=== PATIENT | female | born 1940 | race Caucasian/White ===

== ENCOUNTER 2019-09-05 15:22 | Emergency (ER) | payer MEDICARE, OTHER ==
[~2019-09-05] VITALS: Ht 157.5 cm; Wt 97.5 kg
--- NOTE | 2019-09-05 16:05 | RAD ---
Examination: CT head and cervical spine without contrast HISTORY: History of fall, neck pain COMPARISON: None Available. Exposure: One or more of the following individualized dose reduction techniques were utilized for this examination: 1. Automated exposure control 2. Adjustment of the mA and/or kV according to patient size 3. Use of iterative reconstruction technique TECHNIQUE: 5 mm contiguous axial images were obtained from the skull base to the vertex in both bone and soft tissue algorithm. FINDINGS: No abnormal attenuation within the brain parenchyma. No evidence of acute intracranial hemorrhage. No extra-axial fluid collections. No mass effect or midline shift. Ventricular size is appropriate. Basal cisterns are patent. There is lucency identified in the right parietotemporal skull bone probably prior surgical change ..Ortiz-white differentiation is preserved.Globes and orbits are within normal limits. Paranasal sinuses are clear. Changes of right mastoidectomy. IMPRESSION: 1. No acute intracranial findings. 2. Lucency identified in the right parietotemporal skull bone likely prior surgical change. Correlate clinically. CT CERVICAL SPINE COMPARISON: None Available. Technique: 2.5 mm contiguous axial images were obtained from the skull base through the cervicothoracic junction in both bone and soft tissue algorithm. Additional sagittal and coronal reconstructions were also performed. FINDINGS: Vertebral body alignment is maintained. There is straightening of normal cervical lordosis. The lateral masses of C1 are aligned upon C2. No fractures identified. The bony canal is patent throughout. Moderate intervertebral disc height loss identified in the cervical spine most at C5-C6 vertebral level. The bilateral facets are well aligned. The paraspinous soft tissues are unremarkable. Visualized intracranial contents are unremarkable. Lung apices are clear. IMPRESSION: 1. No acute fracture of the cervical spine. Correlate clinically. 2. Moderate degenerative changes cervical spine. Electronically signed by: Richi Mckinnon MD (09/05/2019 4:03 PM) [id number]
--- NOTE | 2019-09-05 16:12 | PHYS DOC ---
Past History Past Medical History: Hypertension Past Surgical History: Cholecystectomy, Hysterectomy Alcohol Use: None Drug Use: None Adult General Chief Complaint Chief Complaint: MECHANICAL FALL HPI HPI Patient is a 79-year-old female who was brought here by EMS for evaluation of head injury. Patient WAS walking outside the [employer] parking lot, she was walking with her walker, walker get into a pothole and it collapsed, patient fell backward and hit her head on the ground. There was no loss of consciousness. Patient denies any extremity pain, no back pain, no pelvic pain. Patient is not on blood thinner. All other ROS is negative unless otherwise noted in HPI Review of Systems Review of Systems See above Allergies Allergies Allergies Coded Allergies Type Severity Reaction Last Updated Verified No Known Drug Allergies 09/05/19 No Physical Exam Physical Exam See above Constitutional: Well developed, well nourished, no acute distress, non-toxic appearance. [] HENT: Normocephalic, There is moderate size hematoma on right occipital area, bilateral external ears normal, oropharynx moist, no oral exudates, nose normal. [] Eyes: PERRLA, EOMI, conjunctiva normal, no discharge. [] Neck: Normal range of motion, no tenderness, supple, no stridor. [] Cardiovascular:Heart rate regular rhythm, no murmur [] Lungs & Thorax: Bilateral breath sounds clear to auscultation [] Abdomen: Bowel sounds normal, soft, no tenderness, no masses, no pulsatile masses. [] Skin: Warm, dry, no erythema, no rash. [] Back: No tenderness, no CVA tenderness. [] Extremities: No tenderness, no cyanosis, no clubbing, ROM intact, no edema. [] Neurologic: Alert and oriented X 3, normal motor function, normal sensory function, no focal deficits noted. [] Psychologic: Affect normal, judgement normal, mood normal. [] Current Patient Data Vital Signs Vital Signs Date Time Temp Pulse Resp B/P (MAP) Pulse Ox O2 Delivery O2 Flow Rate FiO2 09/05/19 15:52 97.6 88 18 Room Air 94.0 EKG EKG [] Radiology/Procedures Radiology/Procedures [][address] [address] IMAGING REPORT Signed PATIENT: BARAK DAVILA LACCOUNT: [id number] : 1940 LOCATION: ER AGE: 79 SEX: F EXAM STATUS: REG ER ORD. PHYSICIAN: LAUREN CASILLAS DO REASON: FELL, HEAD AND NECK PAIN PROCEDURE: CT HEAD AND CERVICAL SPINE WO Examination: CT head and cervical spine without contrast HISTORY: History of fall, neck pain COMPARISON: None Available. Exposure: One or more of the following individualized dose reduction techniques were utilized for this examination: 1. Automated exposure control 2. Adjustment of the mA and/or kV according to patient size 3. Use of iterative reconstruction technique TECHNIQUE: 5 mm contiguous axial images were obtained from the skull base to the vertex in both bone and soft tissue algorithm. FINDINGS: No abnormal attenuation within the brain parenchyma. No evidence of acute intracranial hemorrhage. No extra-axial fluid collections. No mass effect or midline shift. Ventricular size is appropriate. Basal cisterns are patent. There is lucency identified in the right parietotemporal skull bone probably prior surgical change ..Ortiz-white differentiation is preserved.Globes and orbits are within normal limits. Paranasal sinuses are clear. Changes of right mastoidectomy. IMPRESSION: 1. No acute intracranial findings. 2. Lucency identified in the right parietotemporal skull bone likely prior surgical change. Correlate clinically. CT CERVICAL SPINE COMPARISON: None Available. Technique: 2.5 mm contiguous axial images were obtained from the skull base through the cervicothoracic junction in both bone and soft tissue algorithm. Additional sagittal and coronal reconstructions were also performed. FINDINGS: Vertebral body alignment is maintained. There is straightening of normal cervical lordosis. The lateral masses of C1 are aligned upon C2. No fractures identified. The bony canal is patent throughout. Moderate intervertebral disc height loss identified in the cervical spine most at C5-C6 vertebral level. The bilateral facets are well aligned. The paraspinous soft tissues are unremarkable. Visualized intracranial contents are unremarkable. Lung apices are clear. IMPRESSION: 1. No acute fracture of the cervical spine. Correlate clinically. 2. Moderate degenerative changes cervical spine. Electronically signed by: Richi Mckinnon MD (09/05/2019 4:03 PM) [id number] DICTATED AND SIGNED BY: RICHI MCKINNON MD DATE: 09/05/19 1603 CC: PCP,ROMELIA; CASILLAS,PETER T DO ~ Course & Med Decision Making Course & Med Decision Making Pertinent Labs and Imaging studies reviewed. (See chart for details) [] Dragon Disclaimer Dragon Disclaimer This electronic medical record was generated, in whole or in part, using a voice recognition dictation system. Departure Departure: Impression: Primary Impression: Closed head injury Disposition: HOME, SELF-CARE Condition: STABLE Referrals: PCP,NO (PCP) FOLLOW UP WITH YOUR DOCTOR NEEDED Patient Instructions: Head Injury, Adult LAUREN CASILLAS DO Sep 05, 2019 16:12
[2019-09-05 16:30] VITALS: BP 134/87
== END 2019-09-05 17:10 | disposition home or self-care (01) ==
LOC: ER 15:22
DX: S00.03XA Contusion of scalp, initial encounter (principal); I10 Essential (primary) hypertension; W18.09XA Striking against other object with subsequent fall, initial encounter; Y93.01 Activity, walking, marching and hiking; Y92.481 Parking lot as the place of occurrence of the external cause; Y99.8 Other external cause status
CPT/HCPCS: 70450; 72125; 99284

== ENCOUNTER → 2021-01-27 | Outpatient (CLI) | payer MEDICARE, OTHER ==
--- NOTE | 2021-01-27 14:22 | RAD ---
EXAM: Abdomen, single view. HISTORY: Abdomen cramping. COMPARISON: None. FINDINGS: Frontal views of the abdomen and pelvis are obtained. There is no evidence of bowel obstruc tion. There are nonspecific air-filled loops of bowel throughout the abdomen. There are cholecystomy clips and surgical clips overlying the pelvis. There are few pelvic phleboliths. There is degenerativ e change primarily the lower lumbar levels. There are cardiac pacemaker leads. IMPRESSION: Nonobstructive bowel gas pattern. Electronically signed by: Voila King MD (01/27/2021 2:20 PM) [id number]
== END ==
LOC: RAD 13:26
PROVIDERS: ATTEND Family Medicine
DX: I87.8 Other specified disorders of veins (principal); R10.9 Unspecified abdominal pain
CPT/HCPCS: 74018